=== PATIENT | female | born 1980 | race Caucasian/White ===

== ENCOUNTER 2019-06-20 04:43 | Emergency (ER) | payer SELFPAY ==
[2019-06-20] MEDS ORDERED: Acetaminophen 500 MG TAB ONE (05:05)
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
== END 2019-06-20 06:48 | disposition home or self-care (01) ==
LOC: EEVIPCON 04:43 → ERS 04:43
DX: S61.411A Laceration without foreign body of right hand, initial encounter (principal); S80.02XA Contusion of left knee, initial encounter; S70.212A Abrasion, left hip, initial encounter; F41.9 Anxiety disorder, unspecified; F17.210 Nicotine dependence, cigarettes, uncomplicated; Z79.899 Other long term (current) drug therapy; Y04.8XXA Assault by other bodily force, initial encounter